=== PATIENT | male | born 1985 | race Caucasian/White ===

== ENCOUNTER 2019-03-03 06:00 | Emergency (ER) | payer BC ==
--- NOTE | 2019-03-03 06:16 | Emergency Department Record ---
History of Present Illness - General Chief complaint: Dental Stated complaint: JAW PAIN/DENTAL Time Seen by Provider: 03/03/19 06:11 Source: Patient Mode of Arrival: Ambulatory Limitations: No limitations - History of Present Illness Initial comments: 33 yo male presents to ED for evaluation of increased right lower dental swelling and pain symptoms that have been present for approximately 1 week. Patient was seen by [facility], started on Keflex and then seen by his dentist later in the week and started on Amoxicillin. Patient reports however that his symptoms continue to worsen. Patient denies fevers, chills, or tongue swelling. Patient denies health problems at his baseline. MD complaint: Tooth pain Onset/Timin -: Week(s) Location: Tooth # 1 - Dental pain/swelling Severity: Severe Quality: Aching Consistency: Constant Improves with: None Worsens with: None Context- Dental: History of dental caries - Related Data Home Medications Medication Instructions Recorded Confirmed Last Taken Amoxicillin 1,000 mg PO BID 03/03/19 03/03/19 Unknown Allergies Allergy/AdvReac Type Severity Reaction Status Date / Time Sulfa (Sulfonamide Allergy hives Unverified 02/19/19 18:09 Antibiotics) Review of Systems Constitutional: Denies: Chills, Fever, Malaise, Night sweats Eyes: Denies: Eye discharge, Eye pain ENT: Reports: Dental pain. Denies: Congestion, Ear pain, Epistaxis Respiratory: Denies: Cough, Dyspnea Cardiovascular: Denies: Chest pain, Dyspnea on exertion Endocrine: Denies: Fatigue, Heat or cold intolerance Gastrointestinal: Denies: Abdominal pain, Nausea, Vomiting Genitourinary: Denies: Incontinence, Retention Musculoskeletal: Denies: Arthralgia, Back pain, Gout, Joint swelling Skin: Denies: Bruising, Change in color Neurological: Denies: Abnormal gait, Confusion, Headache, Seizure Psychiatric: Denies: Anxiety Hematological/Lymphatic: Denies: Anemia, Blood Clots Physical Exam - General General Appearance: Alert, Oriented x3, Cooperative, Moderate distress Limitations: No limitations - Head Head exam: Atraumatic Head exam detail: negative: Abrasion, Contusion, San's sign, General tenderness, Hematoma, Laceration - Eye Eye exam: Normal appearance. negative: Conjunctival injection, Periorbital swelling, Periorbital tenderness, Scleral icterus - ENT Ear exam: negative: Auricular hematoma, Auricular trauma Nasal Exam: negative: Active bleeding, Discharge, Dried blood, Foreign body Mouth exam: negative: Drooling, Laceration, Muffled voice, Tongue elevation Teeth exam: Dental tenderness #, Fractured tooth #, Gingival enlargement Throat exam: negative: Tonsillar erythema, Tonsillomegaly, R peritonsillar mass , L peritonsillar mass Image of Mouth/Teeth: 1 - Gingival abscess - Neck Neck exam: Normal inspection. negative: Meningismus, Tenderness - Respiratory Respiratory exam: Normal lung sounds bilaterally. negative: Rales, Respiratory distress, Rhonchi, Stridor - Cardiovascular Cardiovascular Exam: Regular rate, Normal rhythm, Normal heart sounds - GI/Abdominal GI/Abdominal exam: Soft. negative: Rebound, Rigid, Tenderness - Rectal Rectal exam: Deferred - exam: Deferred - Extremities Extremities exam: Normal inspection. negative: Pedal edema, Tenderness - Back Back exam: Denies: CVA tenderness (R), CVA tenderness (L) - Neurological Neurological exam: Alert, Normal gait, Oriented X3 - Psychiatric Psychiatric exam: Normal affect, Normal mood - Skin Skin exam: Normal color. negative: Abrasion Type of lesion: negative: abrasion Course Vital Signs 03/03/19 06:07 Temperature 98.8 F Pulse Rate [ 112 H Left] Respiratory 16 Rate Blood Pressure 139/86 [Left Arm] Pulse Ox 93 L - Reevaluation(s) Reevaluation #1: 03/03/19 06:31 Procedure Note: Approximate 2.0 x 3.5 cm gingival abscess was anesthetized with 1.5 mL of 1% Lidocaine with epinephrine with good anesthesia, and the abscess was drained with #11 blade resulting in a large amount of purulent drainage removed from the gingival tissue. Patient tolerated the procedure well without complications. Patient reports that he has 5 days of Amoxicillin remaining, will call his dentist for follow-up in 1-3 days. Disposition Disposition: Discharge Clinical Impression: Gingival abscess Disposition: Home, Self-Care Condition: (2) Stable Instructions: Dental Abscess (ED) Additional Instructions: Return to ED if your symptoms worsen or if you have any concerns. Continue Amoxicillin as directed. Follow-up with your Dentist in 1-3 days as directed. Forms: Patient Portal Access Time of Disposition: 06:12 Quality - Quality Measures Quality Measures: N/A - Blood Pressure Screening Does Patient Have Any of the Following: No Blood Pressure Classification: Pre-Hypertensive BP Reading Systolic Measurement: 139 Diastolic Measurement: 86 Screening for High Blood Pressure: < Pre-Hypertensive BP, F/U Documented > [ [id number]] Pre-Hypertensive Follow-up Interventions: Referral to alternative/primary care provider.
[2019-03-03] MEDS ORDERED: HYDROCODONE/APAP 5/325MG TABLET PO ONE (06:30)
== END 2019-03-03 06:42 | disposition home or self-care (01) ==
LOC: ER 06:00
DX: K05.213 Aggressive periodontitis, localized, severe (principal)
CPT/HCPCS: 41800; 99283